=== PATIENT | female | born 2000 | race Caucasian/White ===

== ENCOUNTER 2023-03-03 11:57 | Emergency (ER) | payer SELFPAY ==
[2023-03-03 11:59] VITALS: BP 153/92; PULSE 98; RESP 14; TEMP 36.2; O2SAT 100; BMI 46.0
--- NOTE | 2023-03-03 12:18 | EDS_ITS ---
HPI History of Present Illness Chief Complaint: Abscess Detail of Chief Complaint: Swelling to inside of vagina Informant: patient and friend Narrative Narrative: Patient presents to the emergency department with complaint of a swelling to the inside of her vagina. Patient states this has been here for 2 years but lately has gotten larger. It is only uncomfortable if she pushes on it with a finger and otherwise has not had a fever or chills or sweats. She has not seen an [facility] or anybody for this. [facility] Medical History (Updated 03/03/23 @ 13:[address] Delfina Gaviria, DO) Cholecystectomy planned Collapsed lung Allergy/AdvReac Type Severity Reaction Status Date / Time No Known Allergies Allergy Verified 03/03/23 12:00 Family History Mother Bipolar 1 disorder Crohn's disease Fibromyalgia Rheumatoid arteritis Father Bipolar 1 disorder Social History household members: family Smoking Status: Current every day smoker tobacco type: cigarettes ROS ROS ED Review of Systems ROS Unobtainable: other Constitutional Constitutional ED: Reports lethargy; Denies chills, fever(s), sweats or weight loss Eyes Eyes: Denies blurry vision, change in vision or diplopia ENT ENT ED: Denies rhinorrhea or sore throat Cardiovascular Cardiovascular: Denies chest pain, orthopnea or racing heartbeat Respiratory/Chest Respiratory/Chest: Denies cough, dyspnea, dyspnea on exertion, orthopnea or sputum Gastrointestinal Gastrointestinal: Denies abdominal pain, diarrhea, nausea or vomiting Genitourinary Genitourinary ED: Reports other Details: Vaginal swelling/fullness ; Denies dysuria, hematuria or urinary frequency Musculoskeletal Musculoskeletal: Denies arthralgias, back pain, myalgias or neck pain Integumentary Denies abscess, Abrasions or rash Neurologic Neurologic: Denies headache(s) or weakness Psychiatric Psychiatric: Denies anxiety, depression or suicidal thoughts Endocrine Endocrinology: Denies polydipsia, polyphagia or polyuria Hematologic/Lymphatic Hematologic/Lymphatic: Denies easy bleeding, easy bruising or lymphadenopathy Allergic/Immunologic Allergic/Immunologic ED: Denies mouth swelling, tongue swelling or urticaria EXAM Physical Exam Const Vital Signs: 03/03/23 11:59 Temperature 97.2 F L Temperature Source Temporal Pulse Rate 98 Respiratory Rate 14 Blood Pressure 153/92 H Blood Pressure Mean 112 Pulse Ox 100 Oxygen Delivery Method Room Air Positive well nourished and well developed General Appearance ED: well developed and NAD HEENT Reports TM's clear and moist mucous membranes normocephalic and atraumatic; Negative for trauma or tenderness Tympanic Membrane ED: Yes TM's clear Eyes PERRL and EOMs intact bilaterally General Eye ED: Negative for pale conjunctiva or scleral icterus Neck no lymphadenopathy, supple and no JVD General: Negative for tenderness Chest Wall inspection of chest normal and palpation of chest normal Chest: Negative for tenderness Resp normal respiratory effort and clear to auscultation bilaterally Effort and Inspection: Negative for respiratory distress or pain with movement Auscultation: Negative for rhonchi, wheezes or diminished lung sounds Cardio regular rate, regular rhythm, S1 normal heart sound, S2 normal heart sound and no murmurs Peripheral Pulses: pulses 2+ throughout GI normal to inspection, nondistended, normoactive bowel sounds, soft to palpation, non-tender, non-distended and no masses Back/Spine no CVA tenderness and no thoracic nor lumbar tenderness Extremity normal to inspection General Extremety ED: Negative for edema General Extremity: Negative for edema Neuro oriented x3, CN's II-XII intact bilaterally, no sensory deficits noted and gait normal Sensorium / Orientation: awake, alert, oriented to person, oriented to place and oriented to time Motor Exam: strength 5/5 throughout and strength abnormal Psych mental status grossly normal Skin no rashes or lesions noted and no wounds MDM MDM MDM Narrative Medical decision making narrative: Patient was offered a pelvic exam to evaluate further her concern for possible cyst or fullness in the vaginal vault. Patient was in agreement. I did perform a pelvic exam with speculum and noted a normal cervix and there was some whitish physiologic type discharge. There was no evidence of nabothian cyst or abnormality on exam. There is no evidence of bladder or cervix prolapse. Exam essentially unremarkable. I did reassure patient that I felt everything on the exam looked otherwise unremarkable. Will refer to [facility] for follow-up. She has no other concerns or complaints. Discharge Plan Triage Chief Complaint: Abscess ED Provider: Delfina Gaviria Dx/Rx/DC Orders Clinical Impression: Pelvic pain Instructions: ED Pain, Acute, Uncertain Cause, ED Pelvic Pain, Unknown Cause Primary Care Provider: Care Physician,No Primary Referrals: Michelle Robles MD [Med Staff - Active Staff] - 3-5 Days Care Physician,No Primary [Primary Care Provider] - Disposition Disposition: Home, Self Care
--- NOTE | 2023-03-03 13:25 | CM.ED ---
Social Work SW met with patient and patient's guest and introduced self and role as [facility] SW. Patient agreeable to speak to SW with guest present. SW engaged patient in conversation regarding insurance and resources as patient is listed as self pay. Patient interested in Medicaid application and has follow up appointment scheduled at [facility]. SW encouraged patient to inquire about an appointment with the CM at [facility] as she can assist the patient with completing a Medicaid application. SW also reviewed [facility] resource list and [employer] information. Patient receptive towards information and reports no other needs. Guillermina Koroma MSW, TRACI
[2023-03-03 13:38] VITALS: PULSE 60; RESP 16
== END 2023-03-03 13:41 | disposition home or self-care (01) ==
PROVIDERS: Emergency Provider Emergency Medicine; Visit Provider Emergency Medicine
DX: R10.2 Pelvic and perineal pain (principal); F17.210 Nicotine dependence, cigarettes, uncomplicated; Z90.49 Acquired absence of other specified parts of digestive tract
CPT/HCPCS: 99283

== ENCOUNTER 2023-07-22 13:03 | Emergency (ER) | payer SELFPAY ==
[2023-07-22 13:05] VITALS: BP 159/81; PULSE 101; RESP 14; TEMP 36.6; O2SAT 97; BMI 45.9
--- NOTE | 2023-07-22 13:30 | ED.RN ---
PT C/O R HAND PAIN X YEARS, DENIES ANY MEDS ATTEMPTED TO RELIEVE THE PAIN EXCEPT DAILY MARIJUANA. PT INFORMED THE TESTING THAT IS DONE IN THE ER. PT STATES SHE DOES NOT HAVE A FAMILY DR BECAUSE SHE IS NEW TO THE ARE[place]. EXPLAINED CALLING HER INSURANCE COULD HELP HER FIND OUT WHAT DR IS IN HER PLAN FOR THE AREA. EXPLAINED SHE MAY NEED TO F/U WITH A PCP FOR THIS PROBLEM.
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
--- NOTE | 2023-07-22 13:50 | RAD_ITS ---
STUDY: X-RAY - RIGHT HAND REASON FOR EXAM: Female, 23 years old. Consistent pain at the third metacarpophalangeal joint. TECHNIQUE: 3 view(s) of the hand. COMPARISON: None. FINDINGS: Normal radiocarpal articulation. Normal distal radioulnar joint. Normal visualized carpal bones. Normal carpal articulations Normal carpometacarpal articulation of the thumb. Normal second through fifth carpometacarpal joints. Normal metacarpi. Normal metacarpophalangeal joint of the thumb. Normal interphalangeal joint of the thumb. Normal proximal and distal phalanges of the thumb. Normal metacarpophalangeal joints of the second through fifth fingers. Normal proximal and distal interphalangeal joints of the second through fifth fingers. Normal phalanges of the second through fifth fingers. The soft tissue structures are unremarkable. RAD/Hand Min 3 Views IMPRESSION: Normal x-ray examination of the hand. Electronically Signed: Tobin Dozier MD at 14:21 EST ,
[2023-07-22] MEDS: Naproxen 500 MG Tablet PO (14:53)
== END 2023-07-22 15:03 | disposition home or self-care (01) ==
PROVIDERS: Emergency Provider Emergency Medicine; Visit Provider Emergency Medicine
DX: G56.01 Carpal tunnel syndrome, right upper limb (principal); F17.210 Nicotine dependence, cigarettes, uncomplicated; Z90.49 Acquired absence of other specified parts of digestive tract
CPT/HCPCS: 73130; 99283

== ENCOUNTER 2023-08-17 17:59 | Emergency (ER) | payer MEDICAID, SELFPAY ==
[2023-08-17 18:00] VITALS: BP 128/73; PULSE 77; PULSE 79; RESP 12; TEMP 36; O2SAT 97; O2SAT 99; BMI 44.9
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
[2023-08-17 19:53] VITALS: BP 122/68; PULSE 74; RESP 16; TEMP 36.7; O2SAT 99
== END 2023-08-17 19:56 | disposition home or self-care (01) ==
PROVIDERS: Emergency Provider Emergency Medicine; Visit Provider Emergency Medicine
DX: S76.911A Strain of unspecified muscles, fascia and tendons at thigh level, right thigh, initial encounter (principal); S76.912A Strain of unspecified muscles, fascia and tendons at thigh level, left thigh, initial encounter; F17.210 Nicotine dependence, cigarettes, uncomplicated; X58.XXXA Exposure to other specified factors, initial encounter; Z90.49 Acquired absence of other specified parts of digestive tract; M79.651 Pain in right thigh; M79.652 Pain in left thigh
CPT/HCPCS: 93970; 99283

== ENCOUNTER → 2023-08-26 | Outpatient (CLI) | payer MEDICAID, SELFPAY ==
[2023-08-26 12:06] LABS: Absolute Lymphocyte Count 2.66 X10^3/uL (0.83-4.51); Absolute Neutrophil Count 4.4 X10^3/uL (2.0-7.7); Basophil# 0.05 X10^3/uL; Basophil% 0.6 % (0-1); Eosinophil# 0.33 X10^3/uL; Hemoglobin 15.2 g/dL (12.0-15.0); Lymphocyte # 2.66 X10^3/ul (0.83-4.51); Lymphocyte % 32.2 % (19-41); Mean Corp Hgb Conc 32.3 g/dL (32-36); Mean Corpuscular Hgb 30.3 pg (27.0-32.0); Mean Corpuscular Volume 93.8 fL (81-99); Mean Platelet Vol. 12.3 fl (6.2-12.0); Monocyte% 9.7 % (0-10); NRBC Flagged by Analyzer 0 % (0-5); Neutrophil % 53.3 % (47-70); Platelet Count 250 K/mm3 (150-450); RBC Distribution Width CV 12.2 % (11.6-14.6); RBC Distribution Width SD 42.4 fl (35.1-43.9); Red Blood Count 5.01 M/mm3 (4.2-5.4); White Blood Count 8.3 K/mm3 (4.4-11.0)
[2023-08-26 12:46] LABS: ALB/GLOB Ratio 1.3 RATIO (0.9-2.4); AST(SGOT) 16 U/L (15-37); Alanine Aminotransfer ALT/SGPT 24 U/L (13-56); Albumin, Serum 4.1 g/dL (3.2-5.0); Alkaline Phosphatase 64 U/L (45-117); Anion Gap 5 (5-15); BUN 14 mg/dL (7-18); BUN/Creat Ratio 15.7 RATIO (10-20); Calcium,Total 9.2 mg/dL (8.5-10.1); Chloride 111 mmol/L (98-107); Creatinine, Serum 0.89 mg/dL (0.55-1.02); EST Glomerular Filtration Rate 83 mL/min (>60); Est Glom Filt Rate - Afr Amer 101 mL/min (>60); Globulin 3.2 g/dL (2.2-4.2); Glucose 94 mg/dL (74-106); Protein, Total 7.3 g/dL (6.4-8.2); Sodium Level 140 mmol/L (136-145)
== END | disposition home or self-care (01) ==
LOC: BIMLAB 08:46
PROVIDERS: PCP Internal Medicine; Referring Provider Internal Medicine; Visit Provider Internal Medicine
DX: R20.0 Anesthesia of skin (principal); R20.2 Paresthesia of skin; M79.605 Pain in left leg
CPT/HCPCS: 36415; 80053; 85025

== ENCOUNTER 2023-09-13 13:05 | Emergency (ER) | payer MEDICAID, SELFPAY ==
[2023-09-13 13:06] VITALS: BP 144/95; PULSE 118; RESP 20; TEMP 36; O2SAT 97; BMI 41.8
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
[2023-09-13 13:48] LABS: Absolute Lymphocyte Count 2.65 X10^3/uL (0.83-4.51); Absolute Neutrophil Count 8.7 X10^3/uL (2.0-7.7); Basophil# 0.06 X10^3/uL; Basophil% 0.5 % (0-1); Eosinophil# 0.16 X10^3/uL; Eosinophils% 1.3 % (0-5); Hematocrit 45.7 % (37-47); Hemoglobin 15.4 g/dL (12.0-15.0); Lymphocyte # 2.65 X10^3/ul (0.83-4.51); Mean Corp Hgb Conc 33.7 g/dL (32-36); Mean Corpuscular Hgb 30.4 pg (27.0-32.0); Mean Corpuscular Volume 90.3 fL (81-99); Mean Platelet Vol. 10.8 fl (6.2-12.0); Monocyte% 7.9 % (0-10); NRBC Flagged by Analyzer 0 % (0-5); Neutrophil % 69.1 % (47-70); Platelet Count 281 K/mm3 (150-450); RBC Distribution Width CV 12.3 % (11.6-14.6); RBC Distribution Width SD 40.1 fl (35.1-43.9); Red Blood Count 5.06 M/mm3 (4.2-5.4); White Blood Count 12.6 K/mm3 (4.4-11.0)
[2023-09-13] MEDS: Ketorolac 30 MG/ML Syringe IV (13:54)
[2023-09-13] MEDS: 0.9% Normal Saline (1000mL) 1,000 ML 1000 ML IV (13:54)
[2023-09-13 13:55] LABS: Internal QC Validated? YES +Cl - CLEAR BKGD; Pregnancy, Serum, hCG Quali. NEGATIVE Negative
[2023-09-13] MEDS: Ondansetron 4 MG/2 ML Vial IV (13:55)
[2023-09-13] MEDS: LORazepam 2 MG/ML Syringe 1 MG IV (13:57)
[2023-09-13 14:01] LABS: Anion Gap 6 (5-15); BUN 11 mg/dL (7-18); BUN/Creat Ratio 11.4 RATIO (10-20); Calcium,Total 9.3 mg/dL (8.5-10.1); Chloride 107 mmol/L (98-107); Creatinine, Serum 0.96 mg/dL (0.55-1.02); EST Glomerular Filtration Rate 76 mL/min (>60); Est Glom Filt Rate - Afr Amer 92 mL/min (>60); Estimated Creatinine Clearance 103.03 ml/min; Glucose 123 mg/dL (74-106); Potassium 3.6 mmol/L (3.5-5.1); Sodium Level 139 mmol/L (136-145)
[2023-09-13 14:02] LABS: Mucous, Urine 0 SEEN /hpf (<or=2+)
[2023-09-13 14:04] LABS: Color, Urine Yellow (Yellow); Glucose, Dipstick Normal (Normal); Ketone-Dipstick 15 mg/dl (Negative); Leukocyte Esterase-Dipstick 100 /ul (Negative); Nitrite-Dipstick Negative (Negative); Occult Blood-Urine 10 /ul (Negative); Protein-Dipstick 30 mg/dl (Negative); Specific Gravity, Urine 1.015 (1.002-1.030); Urine Bilirubin Dipstick 1 mg/dL (Negative); Urine Clarity Sl. Cloudy (Clear); Urine Urobilinogen 4 mg/dl (Normal)
[2023-09-13 14:16] LABS: Bacteria 1+ /hpf (None Seen); Red Blood Cells-Urine 0-5 SEEN /hpf (0-5); Squamous Epithelial Cells - UA 0-5 SEEN /hpf (5-10); White Blood Cells 10-25 SEEN /hpf (0-5)
[2023-09-13] MEDS: Smz/Tmp Ds Tablet 1 TABLET PO (15:10)
[2023-09-13 15:23] VITALS: BP 142/78; PULSE 64; RESP 14; TEMP 36.6; O2SAT 99
== END 2023-09-13 15:23 | disposition home or self-care (01) ==
PROVIDERS: Emergency Provider Emergency Medicine; PCP Internal Medicine; Visit Provider Emergency Medicine
DX: F41.9 Anxiety disorder, unspecified (principal); N39.0 Urinary tract infection, site not specified; I10 Essential (primary) hypertension; M79.10 Myalgia, unspecified site; F17.210 Nicotine dependence, cigarettes, uncomplicated; B34.9 Viral infection, unspecified; Z90.49 Acquired absence of other specified parts of digestive tract
CPT/HCPCS: 80048; 81001; 84703; 85025; 87631; 96361; 96374; 96375; 99283; J7030; J2405

== ENCOUNTER → 2023-09-14 | Outpatient (CLI) | payer MEDICAID, SELFPAY ==
--- NOTE | 2023-09-14 08:56 | NEURO ---
NCS and/or EMG Patient Report Ordering Doctor: Shwetha Steele DATE OF SERVICE: 09/14/23 Clinical Summary: 23 year old female with symptoms of numbness and tingling in the bilateral lower extremities. She endorses frequent numbness and tingling in the left lateral and medial calf regions. Symptoms in the right lower extremity are occasional. Nerve Conduction Studies Summary: The left peroneal-EDB CMAP amplitude at the fibular head was reduced - likely due to understimulation. Otherwise, nerve conduction studies performed in the bilateral lower extremities were within normal ranges. Needle Examination Summary: Needle examination of select muscles of the bilateral lower extremities demonstrated a higher proportion of motor unit action potentials with increased amplitude and increased duration in the left vastus medialis muscle. Impression: There is no electrodiagnostic evidence of a left or right peroneal mononeuropathy. There is no electrodiagnostic evidence of a large-fiber peripheral polyneuropathy. There is no electrodiagnostic evidence of right lumbosacral radiculopathy Isolated, chronic neurogenic changes in the left vastus medialis muscle can be seen in the setting of a mild, left L2, L3, and/or L4 radicular process (i.e. radiculopathy) but is not definitively diagnostic. Multi Select Codes Neurology Neurology Interp Codes: 71176-62 Musc test done w/n test comp (interp) (2) and 13560-94 Nrv cndj test 7-8 studies (interp)
== END | disposition home or self-care (01) ==
LOC: PSN 07:24
PROVIDERS: PCP Internal Medicine; Referring Provider Internal Medicine; Visit Provider Internal Medicine
DX: R20.0 Anesthesia of skin (principal); R20.2 Paresthesia of skin
CPT/HCPCS: 95886; 95910

== ENCOUNTER → 2023-09-15 | Outpatient (CLI) | payer MEDICAID, SELFPAY ==
--- NOTE | 2023-09-15 08:08 | US_ITS ---
STUDY: ULTRASOUND OF THE FEMALE PELVIS - COMPLETE REASON FOR EXAM: Female, 23 years old. POLYCYSTIC OVARIAN SYNDROME LMP: August 04, 2023. TECHNIQUE: Transvaginal TECHNICAL QUALITY: Adequate. COMPARISON: None. FINDINGS: The uterus is anteverted and is in a midline position. The uterus measures 7.2 cm x 3.7 cm x 3.3 cm. Normal uterine cervix. The endometrium measures 7.5 mm in thickness, and is heterogeneous (striated). There is no demonstrated endometrial mass. There is no demonstrated myometrial mass. I.U.D. - The patient does not have an I.U.D. The right ovary is visualized. The right ovary measures 3.5 cm x 3 cm x 2.2 cm. There is no right ovarian cyst or ovarian mass. There is no visualized right adnexal mass or complex lesion. There is normal arterial and normal venous vascularity. The left ovary is visualized. The left ovary measures 3.9 cm x 3.4 cm x 2.7 cm. There is a 3.2 cm x 2.1 cm by 2.3 cm left ovarian cyst. There is no visualized left adnexal mass or complex lesion. There is normal arterial and normal venous vascularity. There is no fluid in the cul-de-sac. US/Transvaginal Non- IMPRESSION: 3.2 cm x 2.1 cm x 2.3 cm left ovarian cyst. Electronically Signed: Tobin Dozier MD at 15:02 EDT ,
== END | disposition home or self-care (01) ==
LOC: PSN 08:04
PROVIDERS: PCP Internal Medicine; Referring Provider Nurse Practitioner Family; Visit Provider Nurse Practitioner Family
DX: E28.2 Polycystic ovarian syndrome (principal)
CPT/HCPCS: 76830; 94060; 94726; 94729

== ENCOUNTER 2023-09-22 07:55 | Outpatient (CLI) | payer MEDICAID, SELFPAY ==
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
== END 2023-09-22 23:59 | disposition home or self-care (01) ==
LOC: CT 07:56
PROVIDERS: PCP Internal Medicine; Referring Provider Surgery Trauma Surgery; Visit Provider Surgery Trauma Surgery
DX: T14.8XXA Other injury of unspecified body region, initial encounter (principal)
CPT/HCPCS: 75635; Q9967

== ENCOUNTER 2023-11-30 12:00 | Outpatient (RCR) | payer MEDICAID, SELFPAY ==
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
== END 2023-11-30 19:00 | disposition home or self-care (01) ==
LOC: PT 12:00
PROVIDERS: PCP Internal Medicine; Referring Provider Internal Medicine; Visit Provider Internal Medicine
DX: M25.50 Pain in unspecified joint (principal); M79.10 Myalgia, unspecified site
CPT/HCPCS: 97113; 97162; 97530